=== PATIENT | male | born 1985 | race Hispanic/Latino ===

== ENCOUNTER 2020-09-25 07:43 | Emergency (ER) | payer SELFPAY ==
[~2020-09-25] VITALS: Ht 167.6 cm; Wt 60.0 kg
[2020-09-25] MEDS ORDERED: FLEXERIL5 M1 PO (08:30)
[2020-09-25] MEDS ORDERED: MOTRIN800 MG PO (08:30)
[2020-09-25 08:31] VITALS: BP 151/89
== END 2020-09-25 08:38 | disposition home or self-care (01) | DRG 552 ==
LOC: ED 07:43
DX: S16.1XXA Strain of muscle, fascia and tendon at neck level, initial encounter (principal); I10 Essential (primary) hypertension; X58.XXXA Exposure to other specified factors, initial encounter